=== PATIENT | male | born 1940 ===

== ENCOUNTER 2021-12-17 12:48 | Inpatient (IN) | payer MEDICARE ==
[2021-12-17 14:17] LABS: PTT,PARTIAL THROMBOPLSTIN TIME 28.2 SEC (22.0-34.0)
[2021-12-17 14:26] LABS: ANION GAP 17.5 mEq/L (7-13); CHLORIDE,CL 104 mmol/L (98-107); SODIUM,NA 140 mmol/L (136-145)
[2021-12-17 14:31] LABS: CORONAVIRUS COVID-19 NAA POSITIVE (NEGATIVE)
[2021-12-17] MEDS ORDERED: Sodium Chloride 0.9% 500 ML IV ONE (15:15)
[2021-12-17] MEDS ORDERED: Aspirin 325 MG Tab PO ONE (19:31)
[2021-12-17] MEDS ORDERED: Acetaminophen/oxyCODONE 325-5 MG Tab PO PRN (19:32)
[2021-12-17] MEDS ORDERED: Albuterol/Ipratropium 3.0-0.5 MG/3 ML Neb Soln NEB PRN (19:32)
[2021-12-17] MEDS ORDERED: Ondansetron 4 MG/2 ML SDV IVPUSH PRN (19:32)
[2021-12-17] MEDS ORDERED: Polyethylene Glycol 3350 Powder 17 GM Packet PO PRN (19:32)
[2021-12-17] MEDS ORDERED: Acetaminophen 325 MG Tab PO PRN (19:32)
[2021-12-17] MEDS ORDERED: REMDESIVIR 200 MG in Sodium Chloride 0.9% 250 ML IV ONE (19:40)
[2021-12-17] MEDS ORDERED: guaiFENesin/Dextromethorphan 100-10 MG/5 ML Soln 5 ML Cup PO PRN (19:42)
[2021-12-17] MEDS ORDERED: Azithromycin 500 MG in Sodium Chloride 0.9% 250 ML IV ONE (19:43)
[2021-12-17] MEDS ORDERED: cefTRIAXone 1 GM in Sodium Chloride 0.9% 50 ML IV ONE (19:44)
[2021-12-17] MEDS ORDERED: Nicotine 21 MG/24 Hr Patch TRDERM ONE (19:51)
[2021-12-17] MEDS: REMDESIVIR 100 MG in Sodium Chloride 0.9% 100 ML IV SCH (21:06)
[2021-12-17 21:22] LABS: HEMOGLOBIN A1C 5.6 % (<5.7)
[2021-12-17] MEDS ORDERED: Dexamethasone 4 MG/ML SDV IVPUSH ONE (21:33)
[2021-12-17] MEDS ORDERED: Oxymetazoline 0.05% Nasal Spray 30 ML Bottle NAS PRN (21:40)
[2021-12-17] MEDS: Enoxaparin 60 MG/0.6 ML Syringe SUBCUT SCH (22:32)
[2021-12-17 22:46] LABS: AMPHETAMINES,URINE NEGATIVE (NEGATIVE); BARBITURATES,URINE NEGATIVE (NEGATIVE); BENZODIAZEPINE,URINE NEGATIVE (NEGATIVE); MDMA (ECSTASY), URINE NEGATIVE (NEGATIVE); METHADONE,URINE NEGATIVE (NEGATIVE); METHAMPHETAMINES,URINE NEGATIVE (NEGATIVE); OPIATES,URINE NEGATIVE (NEGATIVE); OXYCODONE,URINE NEGATIVE (NEGATIVE); PHENCYCLIDINE,URINE NEGATIVE (NEGATIVE); TCA,URINE NEGATIVE (NEGATIVE)
[2021-12-18 07:26] LABS: ANION GAP 17.4 mEq/L (7-13); CHLORIDE,CL 104 mmol/L (98-107); SODIUM,NA 137 mmol/L (136-145)
[2021-12-18] MEDS ORDERED: Iopamidol 755 Mg/ML 100 ML Bottle IVPUSH ONE (08:02)
[2021-12-18] MEDS: cefTRIAXone 1 GM in Sodium Chloride 0.9% 50 ML IV SCH (09:26)
[2021-12-18] MEDS: Famotidine 20 MG Tab PO SCH (09:29)
[2021-12-18] MEDS: Dexamethasone 6 MG TABLET PO SCH (09:30)
[2021-12-18] MEDS: Aspirin 81 MG Tab.Chew PO SCH (09:32)
[2021-12-18] MEDS: Enoxaparin 60 MG/0.6 ML Syringe SUBCUT SCH ×2 (09:35→22:21)
[2021-12-18] MEDS: Saccharomyces Boulardii (Probiotic) 250 MG Cap PO SCH ×2 (09:35→22:20)
[2021-12-18] MEDS: Azithromycin 500 MG in Sodium Chloride 0.9% 250 ML IV SCH (11:02)
[2021-12-18] MEDS: Nicotine 21 MG/24 Hr Patch TRDERM SCH (18:11)
[2021-12-18] MEDS: REMDESIVIR 100 MG in Sodium Chloride 0.9% 100 ML IV SCH (22:21)
[2021-12-19 07:03] LABS: CHLORIDE,CL 105 mmol/L (98-107); SODIUM,NA 138 mmol/L (136-145)
[2021-12-19] MEDS: Aspirin 81 MG Tab.Chew PO SCH (10:14)
[2021-12-19] MEDS: Saccharomyces Boulardii (Probiotic) 250 MG Cap PO SCH (10:14)
[2021-12-19] MEDS: Famotidine 20 MG Tab PO SCH (10:14)
[2021-12-19] MEDS: Dexamethasone 6 MG TABLET PO SCH (10:15)
[2021-12-19] MEDS: Enoxaparin 60 MG/0.6 ML Syringe SUBCUT SCH ×2 (10:15→17:39)
[2021-12-19] MEDS: cefTRIAXone 1 GM in Sodium Chloride 0.9% 50 ML IV SCH (10:16)
[2021-12-19] MEDS: Azithromycin 500 MG in Sodium Chloride 0.9% 250 ML IV SCH (11:01)
[2021-12-19] MEDS: Nicotine 21 MG/24 Hr Patch TRDERM SCH (18:42)
[2021-12-20] MEDS: Saccharomyces Boulardii (Probiotic) 250 MG Cap PO SCH ×3 (00:41→23:49)
[2021-12-20] MEDS: Enoxaparin 60 MG/0.6 ML Syringe SUBCUT SCH ×3 (00:41→21:35)
[2021-12-20] MEDS: REMDESIVIR 100 MG in Sodium Chloride 0.9% 100 ML IV SCH ×3 (00:42→21:36)
[2021-12-20 06:00] LABS: ANION GAP 13.4 mEq/L (7-13); CHLORIDE,CL 107 mmol/L (98-107); SODIUM,NA 140 mmol/L (136-145)
[2021-12-20] MEDS: Ascorbic Acid 500 MG Tab PO SCH ×2 (09:16→21:35)
[2021-12-20] MEDS: Aspirin 81 MG Tab.Chew PO SCH (09:16)
[2021-12-20] MEDS: Dexamethasone 6 MG TABLET PO SCH (09:16)
[2021-12-20] MEDS: Ferrous Sulfate 325 MG Tab PO SCH ×2 (09:16→17:37)
[2021-12-20] MEDS: Famotidine 20 MG Tab PO SCH (09:16)
[2021-12-20] MEDS: cefTRIAXone 1 GM in Sodium Chloride 0.9% 50 ML IV SCH (09:17)
[2021-12-20] MEDS: Azithromycin 500 MG in Sodium Chloride 0.9% 250 ML IV SCH (09:54)
[2021-12-20] MEDS: Nicotine 21 MG/24 Hr Patch TRDERM SCH (20:00)
[2021-12-20] MEDS: Sodium Chloride 0.9% 10 ML Syringe FLUSH SCH ×2 (21:31→21:36)
[2021-12-21 07:00] LABS: ANION GAP 12.5 mEq/L (7-13); CHLORIDE,CL 106 mmol/L (98-107); SODIUM,NA 139 mmol/L (136-145)
[2021-12-21] MEDS: cefTRIAXone 1 GM in Sodium Chloride 0.9% 50 ML IV SCH (08:11)
[2021-12-21] MEDS: Aspirin 81 MG Tab.Chew PO SCH (09:35)
[2021-12-21] MEDS: Famotidine 20 MG Tab PO SCH (09:35)
[2021-12-21] MEDS: Azithromycin 500 MG in Sodium Chloride 0.9% 250 ML IV SCH (09:36)
[2021-12-21] MEDS: Ascorbic Acid 500 MG Tab PO SCH ×2 (09:36→20:15)
[2021-12-21] MEDS: Dexamethasone 6 MG TABLET PO SCH (09:36)
[2021-12-21] MEDS: Ferrous Sulfate 325 MG Tab PO SCH ×2 (09:36→17:16)
[2021-12-21] MEDS: Enoxaparin 60 MG/0.6 ML Syringe SUBCUT SCH ×2 (09:36→20:14)
[2021-12-21] MEDS: Saccharomyces Boulardii (Probiotic) 250 MG Cap PO SCH ×2 (10:45→20:16)
[2021-12-21] MEDS: REMDESIVIR 100 MG in Sodium Chloride 0.9% 100 ML IV SCH (20:09)
[2021-12-21] MEDS: Nicotine 21 MG/24 Hr Patch TRDERM SCH (20:15)
[2021-12-22] MEDS ORDERED: Levofloxacin 500 MG Tab PO ONE (07:50)
[2021-12-22] MEDS: Ascorbic Acid 500 MG Tab PO SCH (09:02)
[2021-12-22] MEDS: Saccharomyces Boulardii (Probiotic) 250 MG Cap PO SCH (09:02)
[2021-12-22] MEDS: Aspirin 81 MG Tab.Chew PO SCH (09:02)
[2021-12-22] MEDS: Famotidine 20 MG Tab PO SCH (09:02)
[2021-12-22] MEDS: Dexamethasone 6 MG TABLET PO SCH (09:03)
[2021-12-22] MEDS: Ferrous Sulfate 325 MG Tab PO SCH (09:03)
[2021-12-22] MEDS: Enoxaparin 60 MG/0.6 ML Syringe SUBCUT SCH (09:03)
== END 2021-12-22 14:00 | disposition home or self-care (01) | DRG 177 ==
LOC: DL.ED 12:48 → DL.MS 18:32
PROVIDERS: ADMIT Internal Medicine; ATTEND Internal Medicine
PROC: XW033E5 Introduction of Remdesivir Anti-infective into Peripheral Vein, Percutaneous Approach, New Technology Group 5 (ICD-10-PCS; principal; 2021-12-17)
PROC: 3E0333Z Introduction of Anti-inflammatory into Peripheral Vein, Percutaneous Approach (ICD-10-PCS; principal; 2021-12-17)
PROC: 3E0DX3Z Introduction of Anti-inflammatory into Mouth and Pharynx, External Approach (ICD-10-PCS; 2021-12-22)
DX: U07.1 COVID-19 (principal); J12.82 Pneumonia due to coronavirus disease 2019; W19.XXXA Unspecified fall, initial encounter; R77.8 Other specified abnormalities of plasma proteins; N30.00 Acute cystitis without hematuria; C34.90 Malignant neoplasm of unspecified part of unspecified bronchus or lung; R32 Unspecified urinary incontinence; R15.9 Full incontinence of feces; E46 Unspecified protein-calorie malnutrition; Z68.1 Body mass index [BMI] 19.9 or less, adult; J01.00 Acute maxillary sinusitis, unspecified; I65.23 Occlusion and stenosis of bilateral carotid arteries; F17.210 Nicotine dependence, cigarettes, uncomplicated; D64.9 Anemia, unspecified; W18.30XA Fall on same level, unspecified, initial encounter; Z79.01 Long term (current) use of anticoagulants; Z79.82 Long term (current) use of aspirin; Z79.899 Other long term (current) drug therapy; E83.42 Hypomagnesemia; D50.9 Iron deficiency anemia, unspecified; Z86.73 Personal history of transient ischemic attack (TIA), and cerebral infarction without residual deficits; B96.20 Unspecified Escherichia coli [E. coli] as the cause of diseases classified elsewhere; M50.30 Other cervical disc degeneration, unspecified cervical region
CPT/HCPCS: 0240U; 36415; 70450; 70551; 71045; 71260; 72125; 80053; 80061; 80305-QW; 80307; 81001; 82248; 82728; 82947; 83036; 83605; 83735; 83880; 84439; 84443; 84484; 85025; 85379; 85610; 85651; 85730; 86140; 87086; 87088; 87186; 92610-GN; 93005; 93010; 93880; 97161-GP; 97165-GO; 99285; 99285-25; A9270-GY; J0456; J0696; J1100; J1650; J7030; J7050; J8540; Q9967

== ENCOUNTER 2021-12-26 05:51 | Emergency (ER) | payer MEDICARE ==
[2021-12-26] MEDS ORDERED: Sodium Chloride 0.9% 1,000 ML IV ONE (06:25)
[2021-12-26 06:56] LABS: ANION GAP 11.4 mEq/L (7-13); CHLORIDE,CL 109 mmol/L (98-107); SODIUM,NA 141 mmol/L (136-145)
== END 2021-12-26 08:24 ==
LOC: DL.ED 05:51
DX: D50.9 Iron deficiency anemia, unspecified (principal); K92.2 Gastrointestinal hemorrhage, unspecified; E87.5 Hyperkalemia; Z86.711 Personal history of pulmonary embolism
CPT/HCPCS: 36415; 36430; 70450; 71045; 80053; 82150; 82272; 83605; 83690; 83880; 84484; 85025; 85379; 85610; 86850; 86900; 86901; 86920; 86922; 87040; 93005; 93010; 99283; 99285-25; J7030; P9016

== ENCOUNTER 2022-01-22 14:22 | Emergency (ER) | payer MEDICARE ==
[2022-01-22 15:41] LABS: ANION GAP 18.1 mEq/L (7-13); CHLORIDE,CL 106 mmol/L (98-107); SODIUM,NA 141 mmol/L (136-145)
== END 2022-01-22 16:11 | disposition home or self-care (01) ==
LOC: DL.ED 14:22
DX: R06.02 Shortness of breath (principal); J44.9 Chronic obstructive pulmonary disease, unspecified; Z86.16 Personal history of COVID-19; Z79.01 Long term (current) use of anticoagulants; Z72.0 Tobacco use; Z79.82 Long term (current) use of aspirin
CPT/HCPCS: 36415; 71045; 80053; 83880; 84484; 85025; 99284; 99285-25

== ENCOUNTER 2022-03-13 23:08 | Inpatient (IN) | payer MEDICARE ==
[2022-03-13] MEDS ORDERED: Sodium Chloride 0.9% 1,000 ML IV ONE (23:22)
[2022-03-14 00:17] LABS: ANION GAP 14.8 mEq/L (7-13); CHLORIDE,CL 104 mmol/L (98-107); SODIUM,NA 138 mmol/L (136-145)
[2022-03-14 00:30] LABS: CORONAVIRUS COVID-19 NAA NEGATIVE (NEGATIVE)
[2022-03-14 00:31] LABS: O2 DELIVERY DEVICE OM
[2022-03-14 00:36] LABS: ALLEN TEST PERFORMED; BASE EXCESS ARTERIAL -1 mmol/L ((-2)-(+3)); BICARBONATE,ARTERIAL 20.7 mmol/L (22-26); O2 SATURATION ARTERIAL 100 % (95-100); PCO2 ARTERIAL 25 mmHg (35-45); PO2 ARTERIAL 113 mmHg (70-100)
[2022-03-14] MEDS ORDERED: Iopamidol 755 Mg/ML 100 ML Bottle IVPUSH ONE (01:03)
[2022-03-14] MEDS ORDERED: Albuterol/Ipratropium 3.0-0.5 MG/3 ML Neb Soln NEB PRN (01:11)
[2022-03-14] MEDS ORDERED: cefTRIAXone 1 GM in Sodium Chloride 0.9% 50 ML IV SCH (01:15)
[2022-03-14] MEDS ORDERED: Ondansetron 4 MG/2 ML SDV IVPUSH PRN (01:16)
[2022-03-14] MEDS ORDERED: Docusate Sodium 100 MG Cap PO PRN (01:16)
[2022-03-14] MEDS: Azithromycin 500 MG in Sodium Chloride 0.9% 250 ML IV SCH (03:01)
[2022-03-14] MEDS: Apixaban 5 MG Tab PO SCH ×3 (05:00→20:56)
[2022-03-14] MEDS: Budesonide 0.5 MG/2 ML Neb Susp NEB SCH ×2 (08:58→18:26)
[2022-03-14] MEDS: Albuterol/Ipratropium 3.0-0.5 MG/3 ML Neb Soln NEB SCH ×3 (08:58→18:26)
[2022-03-14 10:41] LABS: CHLORIDE,CL 103 mmol/L (98-107); SODIUM,NA 137 mmol/L (136-145)
[2022-03-14] MEDS: Piperacillin/Tazobactam 3.375 GM in Sodium Chloride 0.9% 100 ML IV SCH ×3 (12:51→23:08)
[2022-03-14] MEDS: Acetaminophen 325 MG Tab PO PRN (12:54)
[2022-03-14] MEDS ORDERED: Acetaminophen/HYDROcodone 325-10 MG Tab PO PRN (14:45)
[2022-03-14] MEDS: Nicotine 21 MG/24 Hr Patch TRDERM SCH ×2 (17:16→18:29)
[2022-03-15] MEDS: Temazepam 15 MG Cap PO PRN ×2 (00:13→22:25)
[2022-03-15] MEDS: Albuterol/Ipratropium 3.0-0.5 MG/3 ML Neb Soln NEB SCH ×4 (00:17→17:05)
[2022-03-15] MEDS: Azithromycin 500 MG in Sodium Chloride 0.9% 250 ML IV SCH (00:42)
[2022-03-15] MEDS: Piperacillin/Tazobactam 3.375 GM in Sodium Chloride 0.9% 100 ML IV SCH ×3 (05:25→17:22)
[2022-03-15] MEDS: Budesonide 0.5 MG/2 ML Neb Susp NEB SCH ×2 (07:43→17:05)
[2022-03-15] MEDS: Iron Polysaccharides Complex 150 MG Cap PO SCH (10:24)
[2022-03-15] MEDS: Apixaban 5 MG Tab PO SCH ×2 (10:24→20:01)
[2022-03-15] MEDS: Nicotine 21 MG/24 Hr Patch TRDERM SCH (20:00)
[2022-03-15] MEDS: Acetaminophen 325 MG Tab PO PRN (20:01)
[2022-03-16] MEDS: Azithromycin 500 MG in Sodium Chloride 0.9% 250 ML IV SCH (00:35)
[2022-03-16] MEDS: Albuterol/Ipratropium 3.0-0.5 MG/3 ML Neb Soln NEB SCH ×2 (02:06→09:14)
[2022-03-16] MEDS: Piperacillin/Tazobactam 3.375 GM in Sodium Chloride 0.9% 100 ML IV SCH ×6 (05:55→23:42)
[2022-03-16] MEDS: Apixaban 5 MG Tab PO SCH (08:53)
[2022-03-16] MEDS: Iron Polysaccharides Complex 150 MG Cap PO SCH (08:54)
[2022-03-16] MEDS ORDERED: Budesonide 0.5 MG/2 ML Neb Susp ONE (09:05)
[2022-03-16] MEDS ORDERED: Albuterol/Ipratropium 3.0-0.5 MG/3 ML Neb Soln ONE (09:05)
[2022-03-16] MEDS: Budesonide 0.5 MG/2 ML Neb Susp NEB SCH (09:14)
[2022-03-16] MEDS: Nicotine 21 MG/24 Hr Patch TRDERM SCH (18:41)
[2022-03-16] MEDS: Temazepam 15 MG Cap PO PRN (20:40)
[2022-03-17] MEDS: Azithromycin 500 MG in Sodium Chloride 0.9% 250 ML IV SCH (00:27)
[2022-03-17] MEDS: Piperacillin/Tazobactam 3.375 GM in Sodium Chloride 0.9% 100 ML IV SCH (05:07)
[2022-03-17] MEDS: Iron Polysaccharides Complex 150 MG Cap PO SCH (09:22)
== END 2022-03-17 13:55 | disposition home or self-care (01) | DRG 178 ==
LOC: DL.ED 23:08 → DL.MS 03-14 00:51 → UNDOADMOB 03-14 00:51 → INTOOBSV 03-14 13:37 → OBSVTOIN 03-14 13:37
PROVIDERS: ADMIT Internal Medicine; ATTEND Internal Medicine
DX: J85.1 Abscess of lung with pneumonia (principal); J96.11 Chronic respiratory failure with hypoxia; C16.9 Malignant neoplasm of stomach, unspecified; C78.00 Secondary malignant neoplasm of unspecified lung; E87.2 Acidosis; Z86.718 Personal history of other venous thrombosis and embolism; J44.9 Chronic obstructive pulmonary disease, unspecified; F17.210 Nicotine dependence, cigarettes, uncomplicated; F03.90 Unspecified dementia, unspecified severity, without behavioral disturbance, psychotic disturbance, mood disturbance, and anxiety; Z85.118 Personal history of other malignant neoplasm of bronchus and lung; Z20.822 Contact with and (suspected) exposure to COVID-19; D63.0 Anemia in neoplastic disease; D50.9 Iron deficiency anemia, unspecified; Z79.82 Long term (current) use of aspirin; Z86.711 Personal history of pulmonary embolism; Z79.01 Long term (current) use of anticoagulants; Z79.899 Other long term (current) drug therapy; Z86.16 Personal history of COVID-19
CPT/HCPCS: 0240U; 36415; 36600; 71045; 71260; 80053; 80307; 82272; 82607; 82746; 82803; 83540; 83605; 83735; 84100; 84484; 85025; 85379; 87040; 94640; 93010; 99284; 99285-25; A9270-GY; J0456; J0696; J2543; J7030; J7050; J7620-GY; Q9967